=== PATIENT | female | born 1935 | race Caucasian/White ===

== ENCOUNTER 2018-11-24 18:38 | Emergency (ER) | payer MEDICARE ==
[~2018-11-24] VITALS: Ht 160 cm; Wt 68.0 kg
--- OUTSIDE RECORDS SUMMARY | ~2018-11-24 | XMS | Clinical Summary ---
Demographics + + + | Address | [address] | | | [place] [address] | + + + | Home Phone | | + + + | Preferred Language | Unknown | + + + | Marital Status | | + + + | Gnosticism Affiliation | Unknown | + + + | Race | Unknown | + + + | Ethnic Group | Unknown | + + + Author + + + | Author | [facility] | | | and [place] | + + + | Organization | [facility] | | | and [place] | + + + | Address | Unknown | + + + | Phone | Unavailable | + + + Care Team Providers + +------+ + | Care Block Saw Operator Name | Role | Phone | + +------+ + PP | Unavailable | + +------+ + Allergies Not on File Medications Not on file Active Problems Not on file Social History + +-------+ +--------+------+ | Tobacco Use | Types | Packs/Day | Years | Date | | | | | Used | | + +-------+ +--------+------+ | Never Assessed | | | | | + +-------+ +--------+------+ + + + | Sex Assigned at | Date Recorded | | | | + + + | Not on file | | + + + + + + + | Job Start Date | Occupation | Industry | + + + + | Not on file | Not on file | Not on file | + + + + + + + + | Travel History | Travel Start | Travel End | + + + + + + | No recent travel history available. | + + Plan of Treatment + + + + + | Health Maintenance | Due Date | Last Done | Comments | + + + + + | Vaccine: | | | | | Dtap/Tdap/Td (1 - | 4 | | | | Tdap) | | | | + + + + + | Vaccine: Zoster (1 | | | | | of 2) | 5 | | | + + + + + | Vaccine: | | | | | Pneumococcal 65+ | 0 | | | | Low/Medium Risk (1 | | | | | of 2 - PCV13) | | | | + + + + + | Vaccine: Influenza | | | | | (Season Ended) | 9 | | | + + + + + Results Not on filefrom Last 3 Months"
--- OUTSIDE RECORDS SUMMARY | ~2018-11-24 | XMS | Clinical Summary ---
Demographics + + + | Address | [address] | | | [place] [address] | + + + | Home Phone | | + + + | Preferred Language | Unknown | + + + | Marital Status | | + + + | Presybeterian Affiliation | Unknown | + + + | Race | Unknown | + + + | Ethnic Group | Unknown | + + + Author + + + | Author | [facility] | | | and [place] | + + + | Organization | [facility] | | | and [place] | + + + | Address | Unknown | + + + | Phone | Unavailable | + + + Care Team Providers + +------+ + | Care Press Tool Maker Name | Role | Phone | + [...]
[~2018-11-24 18:38] MED LIST: ACETAMINOPHEN-1 EAC1 PO; LEVAQUIN250 MG PO; LEVAQUIN500 MG PO; PERCOCET 5-3251 EACH PO; SYNTHROID50 MCG PO; TYLENOL WITH C1 EACH PO
== END 2018-11-24 21:34 | disposition home or self-care (01) ==
LOC: ED 18:38
DX: R53.1 Weakness (principal); F17.200 Nicotine dependence, unspecified, uncomplicated; E03.9 Hypothyroidism, unspecified; Z88.2 Allergy status to sulfonamides; Z88.0 Allergy status to penicillin; Z88.6 Allergy status to analgesic agent; Z79.899 Other long term (current) drug therapy; Z51.81 Encounter for therapeutic drug level monitoring
CPT/HCPCS: 80053; 81001; 85025; 85610; 85730; 99284; G0480

== ENCOUNTER 2019-10-22 07:46 | Emergency (ER) | payer MEDICARE ==
[~2019-10-22] VITALS: Ht 160 cm; Wt 63.0 kg
[~2019-10-22 07:46] MED LIST changes: +VITAMIN B122500 MCG PO
[2019-10-22] MEDS ORDERED: ONDANSETRON HCL8 MG PO (07:59)
[2019-10-22] MEDS ORDERED: OMEPRAZOLE20 MG PO (07:59)
[2019-10-22] MEDS ORDERED: ACETAMINOPHEN-1 EAC1 PO (08:00)
[2019-10-22] MEDS ORDERED: URSODIOL250 MG PO (08:00)
[2019-10-22] MEDS ORDERED: NORCO 5-325 TA1 EACH PO (09:36)
== END 2019-10-22 10:16 | disposition home or self-care (01) ==
LOC: ED 07:46
DX: N28.89 Other specified disorders of kidney and ureter (principal); Z87.891 Personal history of nicotine dependence; Z88.2 Allergy status to sulfonamides; Z88.0 Allergy status to penicillin; Z79.899 Other long term (current) drug therapy
CPT/HCPCS: 80053; 81001; 83690; 85025; 96360; 99284-25; J7121